=== PATIENT | male | born 1990 | race Caucasian/White ===

== ENCOUNTER 2021-11-10 02:36 | Emergency (ER) | payer SELFPAY ==
[2021-11-10] MEDS ORDERED: HYDROmorphone 1 MG/ML Syringe ONE (02:42)
[2021-11-10] MEDS ORDERED: HYDROmorphone 1 MG/ML Syringe IVPUSH ONE ×2 (02:45→02:53)
[2021-11-10] MEDS ORDERED: Diphtheria,Pertussis(Acell),Tetanus Vaccine 0.5 ML Syringe IM ONE (02:47)
[2021-11-10] MEDS ORDERED: Ondansetron 4 MG/2 ML SDV IVPUSH ONE (02:48)
[2021-11-10] MEDS ORDERED: ceFAZolin 2 GM in Premix Bag 1 BAG IV ONE (02:48)
[2021-11-10] MEDS ORDERED: Sodium Chloride 0.9% 1,000 ML IV SCH (03:00)
[2021-11-10] MEDS ORDERED: Lidocaine 2% Viscous Solution 15 ML UD ONE (03:09)
[2021-11-10] MEDS ORDERED: fentaNYL 100 MCG/2 ML SDV IVPUSH ONE ×2 (03:10→03:51)
[2021-11-10] MEDS ORDERED: Lidocaine 2% Viscous Solution 15 ML UD PO ONE (03:15)
[2021-11-10] MEDS ORDERED: Bacitracin Oint 1 GM U/D Packet TOP ONE (03:21)
[2021-11-10] MEDS ORDERED: Bacitracin Oint 28.35 GM Tube ONE (03:24)
[2021-11-10] MEDS ORDERED: Bacitracin Oint 28.35 GM Tube TOP ONE (03:31)
== END 2021-11-10 04:10 ==
LOC: JP.ED 02:36
DX: S69.81XA Other specified injuries of right wrist, hand and finger(s), initial encounter (principal); Z23 Encounter for immunization; W39.XXXA Discharge of firework, initial encounter
CPT/HCPCS: 73130; 90471; 90715; 96365; 96375; 96376; 99284; A9270; J0690; J1170; J2405; J3010; J7030